=== PATIENT | male | born 1995 | race African-American/Black ===

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

== ENCOUNTER 2019-12-14 11:55 | Inpatient (IN) | payer SELFPAY ==
[~2019-12-14] VITALS: Ht 195.6 cm; Wt 114.4 kg
[~2019-12-14 11:55] MED LIST: INSU100I17 SQ; INSU100V13 SQ
--- NOTE | 2019-12-14 12:31 | PHYS DOC ---
Past Medical History Past Medical History: Diabetes-Type II Additional Past Medical Histor: PRE DM (SKYLAR MAHMOOD APRN) Past Surgical History: No Surgical History (SKYLAR MAHMOOD APRN) Smoking Status: Never Smoker Alcohol Use: None Drug Use: None (SKYLAR MAHMOOD APRN) General Adult EDM: Chief Complaint: BLOOD SUGAR PROBLEM HPI: HPI: Patient is a 24 year old male with hx of DM II, who presents to the ED today concerned he got exposed to COVID19. Patient reports the sister as well as the niece has COVID19. He states his only symptom is body aches. Patient is also concerned about his blood glucose. He states he ran out of his regular insulin a couple weeks ago. He states he does not have a PCP or any where to follow-up. (SKYLAR MAHMOOD APRN) Review of Systems: Review of Systems: Constitutional: Concern for COVID19. Reports body aches. Denies fever or chills. [] Eyes: Denies change in visual acuity. [] HENT: Denies nasal congestion or sore throat. [] Respiratory: Denies cough or shortness of breath. [] Cardiovascular: Denies chest pain or edema. [] GI: Denies abdominal pain, nausea, vomiting, bloody stools or diarrhea. [] : Denies dysuria. [] Musculoskeletal: Denies back pain or joint pain. [] Integument: Denies rash. [] Neurologic: Denies headache, focal weakness or sensory changes. [] Endocrine: Request for insulin refill possible hyperglycemia psychiatric: Denies depression or anxiety. [] (SKYLAR MAHMOOD APRN) Heart Score: Risk Factors: Risk Factors: DM, Current or recent (<one month) smoker, HTN, HLP, family history of CAD, obesity. Risk Scores: Score 0 - 3: 2.5% MACE over next 6 weeks - Discharge Home Score 4 - 6: 20.3% MACE over next 6 weeks - Admit for Clinical Observation Score 7 - 10: 72.7% MACE over next 6 weeks - Early Invasive Strategies (SKYLAR MAHMOOD APRN) Allergies: Allergies: Allergies Coded Allergies Type Severity Reaction Last Updated Verified No Known Drug Allergies 07/30/13 No (SKYLAR MAHMOOD APRN) Physical Exam: PE: Constitutional: Well developed, well nourished, no acute distress, non-toxic appearance. [] HENT: Normocephalic, atraumatic, bilateral external ears normal, oropharynx moist, no oral exudates, nose normal. Dry mucous membranes. Eyes: PERRLA, EOMI, conjunctiva normal, no discharge. [] Neck: Normal range of motion, no tenderness, supple, no stridor. [] Cardiovascular:Heart rate regular rhythm, no murmur [] Lungs & Thorax: Bilateral breath sounds clear to auscultation [] Abdomen: Bowel sounds normal, soft, no tenderness, no masses, no pulsatile masses. [] Skin: Warm, dry, no erythema, no rash. [] Back: No tenderness, no CVA tenderness. [] Extremities: No tenderness, no cyanosis, no clubbing, ROM intact, no edema. [] Neurologic: Alert and oriented X 3, normal motor function, normal sensory function, no focal deficits noted. [] Psychologic: flat affect (SKYLAR MAHMOOD APRN) Current Patient Data: Labs: Laboratory Tests Test 12/14/19 12:03 Glucose (Fingerstick) 489 mg/dL (70-99) H Vital Signs: Vital Signs Date Time Temp Pulse Resp B/P (MAP) Pulse Ox O2 Delivery O2 Flow Rate FiO2 12/14/19 12:19 97.8 99 18 123/69 (87) 100 Room Air 97.8 (SKYLAR MAHMOOD APRN) EKG: EKG: [] (SKYLAR MAHMOOD APRN) Radiology/Procedures: Radiology/Procedures: [] (SKYLAR MAHMOOD APRN) Course & Med Decision Making: Course & Med Decision Making Pertinent Labs and Imaging studies reviewed. (See chart for details) This is a 24-year-old male patient presenting to the ED today concerned he got exposed to COVID19 through the niece and the sister. Patient is also concerned about his blood glucose, he ran out of his insulin weeks ago. Bedside fingerstick 489 CBC no acute findings, CMP with sodium of 129 corrected for glucose 130, blood glucose 477 with an anion gap of 17. Urine analysis noted for 80 ketones. Patient was given 2 L of IV fluids and 10 units of insulin, glucose is down to 403. Spoke with Dr. Basilio who accepted patient for admission. More fluids were ordered as well as 8 units of insulin. (SKYLAR MAHMOOD APRN) Dragon Disclaimer: Dragyaa Disclaimer: This electronic medical record was generated, in whole or in part, using a voice recognition dictation system. (SKYLAR MAHMOOD APRN) Departure Departure Impression: Primary Impression: Person under investigation for COVID-19 Additional Impression: DKA (diabetic ketoacidosis) Qualified Codes: E10.10 - Type 1 diabetes mellitus with ketoacidosis without coma Disposition: ADMITTED INPATIENT Condition: STABLE Referrals: NO PCP (PCP) Justicifation of Admission Dx: Justifications for Admission: Justification of Admission Dx: N/A (SKYLAR MAHMOOD APRN) Attending Signature Attending Signature I have reviewed the PA/SOCIAL SCIENCES PROFESSOR's note and plan of care. I was available for consultation as needed during the patient's visit in the emergency department. I agree with the clinical impression, plan, and disposition. (IFTIKHAR JEFFERSON DO) SKYLAR MAHMOOD APRN Dec 14, 2019 12:31 IFTIKHAR JEFFERSON DO Dec 14, 2019 14:48
[2019-12-14] MEDS ORDERED: INSULIN REGULAR 100 UNIT/ML 3ML VIAL. IV ONE ×3 (13:00→19:15)
[2019-12-14] MEDS ORDERED: IV NORMAL SALINE 1000ML BAG 1,000 ML IV ONE ×5 (13:00→19:15)
[2019-12-14 13:19] LABS: BASO % 0 % (0-3); EOS % 0 % (0-3); HEMOGLOBIN 16.3 g/dL (13.0-17.5); LYMPH # 0.4 x10^3/uL (1.0-4.8); LYMPH % 6 % (24-48); MEAN CORPUSCULAR HEMOGLOBIN 29 pg (25-35); MEAN CORPUSCULAR HGB CONC 33 g/dL (31-37); MEAN CORPUSCULAR VOLUME 88 fL (79-100); MONO % 15 % (0-9); NEUT # 5.7 x10^3/uL (1.8-7.7); NEUT % 79 % (31-73); PLATELET COUNT 156 x10^3/uL (140-400); RED BLOOD COUNT 5.55 x10^6/uL (4.30-5.70); RED CELL DISTRIBUTION WIDTH 12.7 % (11.5-14.5); WHITE BLOOD COUNT 7.2 x10^3/uL (4.0-11.0)
[2019-12-14 13:34] LABS: CALCIUM 9.4 mg/dL (8.5-10.1); CREATININE 1.2 mg/dL (0.7-1.3); GFR 91.6; POTASSIUM 4.3 mmol/L (3.5-5.1)
[2019-12-14 13:40] LABS: ALBUMIN 3.9 g/dL (3.4-5.0); MAGNESIUM 2.2 mg/dL (1.8-2.4); TOTAL BILIRUBIN 0.5 mg/dL (0.2-1.0); TOTAL PROTEIN 7.8 g/dL (6.4-8.2)
[2019-12-14 13:44] LABS: BILIRUBIN,URINE NEGATIVE (NEG); CLARITY,URINE CLEAR; COLOR,URINE YELLOW; NITRITE,URINE NEGATIVE (NEG); PROTEIN,URINE NEGATIVE (NEG-TRACE); UROBILINOGEN,URINE 0.2 mg/dL (0.2 mg/dL)
[2019-12-14 13:52] LABS: BARBITURATES NEG (NEG); BENZODIAZEPINES NEG (NEG); CANNABINOIDS NEG (NEG); COCAINE NEG (NEG); METHADONE NEG (NEG); OPIATES NEG (NEG); PHENCYCLIDINE NEG (NEG)
[2019-12-14 13:53] LABS: AMPHETAMINE/METHAMPHETAMINE NEG (NEG)
[2019-12-14 13:56] LABS: BACTERIA,URINE 0 /HPF (0-FEW); SQUAMOUS EPITHELIAL CELL,UR FEW /LPF
[2019-12-14] MEDS ORDERED: ONDANSETRON PF 4 MG/2 ML VIAL. IV PRN (14:30)
[2019-12-14] MEDS ORDERED: ACETAMINOPHEN 325 MG TABLET. PO PRN (14:30)
[2019-12-14] MEDS ORDERED: DEXTROSE 50% 25 GM / 50ML DISP.SYRIN. IV PRN (15:00)
[2019-12-14] MEDS ORDERED: ONDANSETRON PF 4 MG/2 ML VIAL. IVP PRN (15:00)
--- NOTE | 2019-12-14 15:04 | PDOC1 ---
History and Physical Date of Admission Date of Admission DATE: 12/14/19 TIME: 15:04 Identification/Chief Complaint Chief Complaint Body aches Source Source: Patient History of Present Illness History of Present Illness Patient is a 24-year-old male with past medical history of diabetes, who presents with complaints of body aches. Patient is initial concern was for COVID-19 exposure. He states he is on insulin for his history of diabetes, but has not taken his insulin in 1 week. When asked patient as to why he has not taken his insulin, he is unable to provide adequate reason. He states he has his insulin, but just has not taken it. Patient denies any abdominal pain, nausea, vomiting, diarrhea. Past Medical History Endocrine: Diabetes Past Surgical History Past Surgical History: No pertinent history Family History Family History: Diabetes Social History Smoke: No ALCOHOL: none Drugs: None Current Problem List Problem List Problems Medical Problems: (1) DKA (diabetic ketoacidosis) Status: Acute (2) Person under investigation for COVID-19 Status: Acute Current Medications Current Medications Current Medications Sodium Chloride 1,000 ml @ 1,000 mls/hr 1X ONCE IV Last administered on 12/14/19at 12:46; Start 12/14/19 at 13:00; Stop 12/14/19 at 13:59; Status DC Sodium Chloride 1,000 ml @ 1,000 mls/hr 1X ONCE IV Last administered on 12/14/19at 13:19; Start 12/14/19 at 13:00; Stop 12/14/19 at 13:59; Status DC Insulin Human Regular (HumuLIN R VIAL) 10 unit 1X ONCE IV Last administered on 12/14/19at 12:55; Start 12/14/19 at 13:00; Stop 12/14/19 at 13:01; Status DC Insulin Human Regular (HumuLIN R VIAL) 8 unit 1X ONCE IV Last administered on 12/14/19at 14:42; Start 12/14/19 at 14:30; Stop 12/14/19 at 14:32; Status DC Sodium Chloride 1,000 ml @ 1,000 mls/hr 1X ONCE IV Last administered on 12/14/19at 14:41; Start 12/14/19 at 14:30; Stop 12/14/19 at 15:29 Ondansetron HCl (Zofran) 4 mg PRN Q8HRS PRN IV NAUSEA/VOMITING; Start 12/14/19 at 14:30; Stop 12/15/19 at 14:29 Acetaminophen (Tylenol) 650 mg PRN Q4HRS PRN PO FEVER > 100.3'F; Start 12/14/19 at 14:30; Stop 12/15/19 at 14:29 Sodium Chloride 1,000 ml @ 125 mls/hr 1X ONCE IV Last administered on 12/14/19at 14:30; Start 12/14/19 at 14:30; Stop 12/14/19 at 22:29 Insulin Glargine (Lantus Syringe) 20 unit QHS SQ ; Start 12/14/19 at 21:00; Status UNV Insulin Human Lispro (HumaLOG) 7 units TIDWMEALS SQ ; Start 12/14/19 at 17:00 Dextrose (Dextrose 50%-Water Syringe) 12.5 gm PRN Q15MIN PRN IV SEE COMMENTS; Start 12/14/19 at 15:00 Active Scripts Active Levemir (Insulin Detemir) 100 Unit/1 Ml Vial 330 Unit SQ QHS Novolog Flexpen (Insulin Aspart) 100 Unit/1 Ml Insuln.pen 10 Unit SQ TID Allergies Allergies: Coded Allergies: No Known Drug Allergies (Unverified , 07/30/13) ROS General: No: Chills, Night Sweats, Fatigue PSYCHOLOGICAL ROS: No: Anxiety, Depression Eyes: No Blurry vision, No Double vision HEENT: No: Heacaches, Sore Throat ALLERGY AND IMMUNOLOGY: No: Hives, Nasal Congestion Hematological and Lymphatic: No: Blood Clots, Brusing Respiratory: No: Cough, Shortness of breath Cardiovascular: No Chest Pain, No Palpitations Gastrointestinal: No Nausea, No Vomiting, No Abdominal Pain Genitourinary: No Dysuria, No Frequency Musculoskeletal: Yes Muscle Pain; No Joint Stiffness Neurological: No Dizziness, No Headaches Skin: No Dry Skin, No Rash Physical Exam General: Alert, Oriented X3, Cooperative, No acute distress HEENT: PERRLA Lungs: Clear to auscultation, Normal air movement Heart: RRR, no murmurs Cardiovascular: S1, S2 Abdomen: Normal bowel sounds, Soft, No tenderness, No hepatosplenomegaly, No masses Extremities: No clubbing, No cyanosis, No edema, Normal pulses, No tenderness/swelling Skin: No rashes, No breakdown, No significant lesion Neuro: Normal gait, Normal speech, Strength at 5/5 X4 ext, Normal tone, Sensation intact, Cranial nerves 3-12 NL, Reflexes 2+ Psych/Mental Status: Mental status NL, Mood NL Vitals Vitals Vital Signs Date Time Temp Pulse Resp B/P (MAP) Pulse Ox O2 Delivery O2 Flow Rate FiO2 12/14/19 12:19 97.8 99 18 123/69 (87) 100 Room Air 97.8 Labs Labs Laboratory Tests Test 12/14/19 12:03 12/14/19 12:45 12/14/19 13:15 12/14/19 14:18 Glucose (Fingerstick) 489 mg/dL (70-99) 403 mg/dL (70-99) White Blood Count 7.2 x10^3/uL (4.0-11.0) Red Blood Count 5.55 x10^6/uL (4.30-5.70) Hemoglobin 16.3 g/dL (13.0-17.5) Hematocrit 49.0 % (39.0-53.0) Mean Corpuscular Volume 88 fL (79-100) Mean Corpuscular Hemoglobin 29 pg (25-35) Mean Corpuscular Hemoglobin Concent 33 g/dL (31-37) Red Cell Distribution Width 12.7 % (11.5-14.5) Platelet Count 156 x10^3/uL (140-400) Neutrophils (%) (Auto) 79 % (31-73) Lymphocytes (%) (Auto) 6 % (24-48) Monocytes (%) (Auto) 15 % (0-9) Eosinophils (%) (Auto) 0 % (0-3) Basophils (%) (Auto) 0 % (0-3) Neutrophils # (Auto) 5.7 x10^3/uL (1.8-7.7) Lymphocytes # (Auto) 0.4 x10^3/uL (1.0-4.8) Monocytes # (Auto) 1.0 x10^3/uL (0.0-1.1) Eosinophils # (Auto) 0.0 x10^3/uL (0.0-0.7) Basophils # (Auto) 0.0 x10^3/uL (0.0-0.2) Sodium Level 129 mmol/L (136-145) Potassium Level 4.3 mmol/L (3.5-5.1) Chloride Level 91 mmol/L (98-107) Carbon Dioxide Level 19 mmol/L (21-32) Anion Gap 19 (6-14) Blood Urea Nitrogen 11 mg/dL (8-26) Creatinine 1.2 mg/dL (0.7-1.3) Estimated GFR (Cockcroft-Gault) 91.6 BUN/Creatinine Ratio 9 (6-20) Glucose Level 477 mg/dL (70-99) Calcium Level 9.4 mg/dL (8.5-10.1) Magnesium Level 2.2 mg/dL (1.8-2.4) Total Bilirubin 0.5 mg/dL (0.2-1.0) Aspartate Amino Transf (AST/SGOT) 12 U/L (15-37) Alanine Aminotransferase (ALT/SGPT) 21 U/L (16-63) Alkaline Phosphatase 79 U/L (46-116) Total Protein 7.8 g/dL (6.4-8.2) Albumin 3.9 g/dL (3.4-5.0) Albumin/Globulin Ratio 1.0 (1.0-1.7) Ethyl Alcohol Level < 10 mg/dL (0-10) Urine Collection Type Unknown Urine Color Yellow Urine Clarity Clear Urine pH 5.0 (<5.0-8.0) Urine Specific Edison >=1.030 (1.000-1.030) Urine Protein Negative mg/dL (NEG-TRACE) Urine Glucose (UA) >=1000 mg/dL (NEG) Urine Ketones (Stick) >=80 mg/dL (NEG) Urine Blood Negative (NEG) Urine Nitrite Negative (NEG) Urine Bilirubin Negative (NEG) Urine Urobilinogen Dipstick 0.2 mg/dL (0.2 mg/dL) Urine Leukocyte Esterase Negative (NEG) Urine RBC 6-10 /HPF (0-2) Urine WBC 1-4 /HPF (0-4) Urine Squamous Epithelial Cells Few /LPF Urine Bacteria 0 /HPF (0-FEW) Urine Opiates Screen Neg (NEG) Urine Methadone Screen Neg (NEG) Urine Barbiturates Neg (NEG) Urine Phencyclidine Screen Neg (NEG) Urine Amphetamine/Methamphetamine Neg (NEG) Urine Benzodiazepines Screen Neg (NEG) Urine Cocaine Screen Neg (NEG) Urine Cannabinoids Screen Neg (NEG) Urine Ethyl Alcohol Neg (NEG) Laboratory Tests Test 12/14/19 12:03 12/14/19 12:45 12/14/19 13:15 12/14/19 14:18 Glucose (Fingerstick) 489 mg/dL (70-99) 403 mg/dL (70-99) White Blood Count 7.2 x10^3/uL (4.0-11.0) Red Blood Count 5.55 x10^6/uL (4.30-5.70) Hemoglobin 16.3 g/dL (13.0-17.5) Hematocrit 49.0 % (39.0-53.0) Mean Corpuscular Volume 88 fL (79-100) Mean Corpuscular Hemoglobin 29 pg (25-35) Mean Corpuscular Hemoglobin Concent 33 g/dL (31-37) Red Cell Distribution Width 12.7 % (11.5-14.5) Platelet Count 156 x10^3/uL (140-400) Neutrophils (%) (Auto) 79 % (31-73) Lymphocytes (%) (Auto) 6 % (24-48) Monocytes (%) (Auto) 15 % (0-9) Eosinophils (%) (Auto) 0 % (0-3) Basophils (%) (Auto) 0 % (0-3) Neutrophils # (Auto) 5.7 x10^3/uL (1.8-7.7) Lymphocytes # (Auto) 0.4 x10^3/uL (1.0-4.8) Monocytes # (Auto) 1.0 x10^3/uL (0.0-1.1) Eosinophils # (Auto) 0.0 x10^3/uL (0.0-0.7) Basophils # (Auto) 0.0 x10^3/uL (0.0-0.2) Sodium Level 129 mmol/L (136-145) Potassium Level 4.3 mmol/L (3.5-5.1) Chloride Level 91 mmol/L (98-107) Carbon Dioxide Level 19 mmol/L (21-32) Anion Gap 19 (6-14) Blood Urea Nitrogen 11 mg/dL (8-26) Creatinine 1.2 mg/dL (0.7-1.3) Estimated GFR (Cockcroft-Gault) 91.6 BUN/Creatinine Ratio 9 (6-20) Glucose Level 477 mg/dL (70-99) Calcium Level 9.4 mg/dL (8.5-10.1) Magnesium Level 2.2 mg/dL (1.8-2.4) Total Bilirubin 0.5 mg/dL (0.2-1.0) Aspartate Amino Transf (AST/SGOT) 12 U/L (15-37) Alanine Aminotransferase (ALT/SGPT) 21 U/L (16-63) Alkaline Phosphatase 79 U/L (46-116) Total Protein 7.8 g/dL (6.4-8.2) Albumin 3.9 g/dL (3.4-5.0) Albumin/Globulin Ratio 1.0 (1.0-1.7) Ethyl Alcohol Level < 10 mg/dL (0-10) Urine Collection Type Unknown Urine Color Yellow Urine Clarity Clear Urine pH 5.0 (<5.0-8.0) Urine Specific Edison >=1.030 (1.000-1.030) Urine Protein Negative mg/dL (NEG-TRACE) Urine Glucose (UA) >=1000 mg/dL (NEG) Urine Ketones (Stick) >=80 mg/dL (NEG) Urine Blood Negative (NEG) Urine Nitrite Negative (NEG) Urine Bilirubin Negative (NEG) Urine Urobilinogen Dipstick 0.2 mg/dL (0.2 mg/dL) Urine Leukocyte Esterase Negative (NEG) Urine RBC 6-10 /HPF (0-2) Urine WBC 1-4 /HPF (0-4) Urine Squamous Epithelial Cells Few /LPF Urine Bacteria 0 /HPF (0-FEW) Urine Opiates Screen Neg (NEG) Urine Methadone Screen Neg (NEG) Urine Barbiturates Neg (NEG) Urine Phencyclidine Screen Neg (NEG) Urine Amphetamine/Methamphetamine Neg (NEG) Urine Benzodiazepines Screen Neg (NEG) Urine Cocaine Screen Neg (NEG) Urine Cannabinoids Screen Neg (NEG) Urine Ethyl Alcohol Neg (NEG) VTE Prophylaxis Ordered VTE Prophylaxis Devices: Yes VTE Pharmacological Prophylaxi: No Assessment/Plan Assessment/Plan Hyperglycemia, hyponatremia, ketonuria Plan: Continue with fluid boluses and insulin. Patient anion gap elevated but less than 20. I believe he can be managed with fluid boluses and IV/subQ insulin. Will monitor patient in ICU, but if his gap closes and bicarb normalizes he can be transitioned to the floor. Corrected sodium within normal range. VTE prophylaxis. Patient is on surrogate decision maker. Full code. Justifications for Admission Other Justification MARÍA FARMER MD Dec 14, 2019 15:04
[2019-12-14 17:30] VITALS: BP 126/88
[2019-12-14 18:00] VITALS: BP 119/75
[2019-12-14 19:03] VITALS: BP 136/84
[2019-12-14 19:23] LABS: CREATININE 1.1 mg/dL (0.7-1.3); GFR 101.3; POTASSIUM 4.5 mmol/L (3.5-5.1)
[2019-12-14 19:27] LABS: MAGNESIUM 2.2 mg/dL (1.8-2.4); PHOSPHORUS 3.9 mg/dL (2.6-4.7)
[2019-12-14] MEDS: INSULIN GLARGINE SYRINGE. SQ SCH ×2 (21:03→21:08)
[2019-12-14] MEDS: INSULIN LISPRO 300 UNITS/3 ML VIAL. SQ SCH (21:06)
[2019-12-14 23:56] LABS: CALCIUM 8.3 mg/dL (8.5-10.1); GFR 113.1; MAGNESIUM 2.2 mg/dL (1.8-2.4); PHOSPHORUS 3.6 mg/dL (2.6-4.7); POTASSIUM 4.3 mmol/L (3.5-5.1)
[2019-12-15] VITALS (7 sets, daily range): BP systolic 117–134; BP diastolic 72–86
[2019-12-15 06:35] LABS: BASO % 0 % (0-3); EOS % 0 % (0-3); HEMATOCRIT 43.5 % (39.0-53.0); HEMOGLOBIN 14.5 g/dL (13.0-17.5); LYMPH # 1.2 x10^3/uL (1.0-4.8); LYMPH % 32 % (24-48); MEAN CORPUSCULAR HEMOGLOBIN 29 pg (25-35); MEAN CORPUSCULAR HGB CONC 33 g/dL (31-37); MEAN CORPUSCULAR VOLUME 87 fL (79-100); MONO # 0.5 x10^3/uL (0.0-1.1); MONO % 14 % (0-9); NEUT % 53 % (31-73); PLATELET COUNT 135 x10^3/uL (140-400); RED BLOOD COUNT 4.98 x10^6/uL (4.30-5.70); RED CELL DISTRIBUTION WIDTH 12.6 % (11.5-14.5); WHITE BLOOD COUNT 3.7 x10^3/uL (4.0-11.0)
[2019-12-15 06:55] LABS: CALCIUM 8.3 mg/dL (8.5-10.1); CREATININE 0.8 mg/dL (0.7-1.3); GFR 146.3; POTASSIUM 3.6 mmol/L (3.5-5.1)
[2019-12-15] MEDS: INSULIN LISPRO 300 UNITS/3 ML VIAL. SQ SCH ×4 (08:33→18:18)
--- NOTE | 2019-12-15 09:20 | NUR ---
Patient transferred to room 667 from ICU at 0920. Patient stable, A&O, & no complaints of pain. Will continue to monitor.
--- NOTE | 2019-12-15 11:17 | PDOC ---
[employer] PROGRESS NOTE Date of Service DOS: DATE: 12/15/19 TIME: 11:16 Chief Complaint Chief Complaint DKA History of Present Illness History of Present Illness Patient seen and examined earlier this morning in the ICU he is now being transferred out of the ICU as his COVID testing is negative Discussed with RN Chart reviewed Discussed with case management Vitals/I&O Vitals/I&O: Vital Signs Date Time Temp Pulse Resp B/P (MAP) Pulse Ox O2 Delivery O2 Flow Rate FiO2 12/15/19 08:47 Room Air 12/15/19 08:00 98.7 91 16 130/80 (97) 98 98.7 I & O 12/14/19 12/14/19 12/15/19 15:00 23:00 07:00 Intake Total 240 ml Balance 240 ml Physical Exam General: Alert, Oriented X3, Cooperative, No acute distress Abdomen: Normal bowel sounds, Soft, No tenderness, No hepatosplenomegaly, No masses Extremities: No clubbing, No cyanosis, No edema, Normal pulses, No ten derness/swelling Skin: No rashes, No breakdown, No significant lesion Labs Labs: Laboratory Tests Test 12/14/19 12:03 12/14/19 12:45 12/14/19 13:15 12/14/19 14:18 Glucose (Fingerstick) 489 mg/dL (70-99) 403 mg/dL (70-99) White Blood Count 7.2 x10^3/uL (4.0-11.0) Red Blood Count 5.55 x10^6/uL (4.30-5.70) Hemoglobin 16.3 g/dL (13.0-17.5) Hematocrit 49.0 % (39.0-53.0) Mean Corpuscular Volume 88 fL (79-100) Mean Corpuscular Hemoglobin 29 pg (25-35) Mean Corpuscular Hemoglobin Concent 33 g/dL (31-37) Red Cell Distribution Width 12.7 % (11.5-14.5) Platelet Count 156 x10^3/uL (140-400) Neutrophils (%) (Auto) 79 % (31-73) Lymphocytes (%) (Auto) 6 % (24-48) Monocytes (%) (Auto) 15 % (0-9) Eosinophils (%) (Auto) 0 % (0-3) Basophils (%) (Auto) 0 % (0-3) Neutrophils # (Auto) 5.7 x10^3/uL (1.8-7.7) Lymphocytes # (Auto) 0.4 x10^3/uL (1.0-4.8) Monocytes # (Auto) 1.0 x10^3/uL (0.0-1.1) Eosinophils # (Auto) 0.0 x10^3/uL (0.0-0.7) Basophils # (Auto) 0.0 x10^3/uL (0.0-0.2) Sodium Level 129 mmol/L (136-145) Potassium Level 4.3 mmol/L (3.5-5.1) Chloride Level 91 mmol/L (98-107) Carbon Dioxide Level 19 mmol/L (21-32) Anion Gap 19 (6-14) Blood Urea Nitrogen 11 mg/dL (8-26) Creatinine 1.2 mg/dL (0.7-1.3) Estimated GFR (Cockcroft-Gault) 91.6 BUN/Creatinine Ratio 9 (6-20) Glucose Level 477 mg/dL (70-99) Calcium Level 9.4 mg/dL (8.5-10.1) Magnesium Level 2.2 mg/dL (1.8-2.4) Total Bilirubin 0.5 mg/dL (0.2-1.0) Aspartate Amino Transf (AST/SGOT) 12 U/L (15-37) Alanine Aminotransferase (ALT/SGPT) 21 U/L (16-63) Alkaline Phosphatase 79 U/L (46-116) Total Protein 7.8 g/dL (6.4-8.2) Albumin 3.9 g/dL (3.4-5.0) Albumin/Globulin Ratio 1.0 (1.0-1.7) Ethyl Alcohol Level < 10 mg/dL (0-10) Urine Collection Type Unknown Urine Color Yellow Urine Clarity Clear Urine pH 5.0 (<5.0-8.0) Urine Specific [employer] >=1.030 (1.000-1.030) Urine Protein Negative mg/dL (NEG-TRACE) Urine Glucose (UA) >=1000 mg/dL (NEG) Urine Ketones (Stick) >=80 mg/dL (NEG) Urine Blood Negative (NEG) Urine Nitrite Negative (NEG) Urine Bilirubin Negative (NEG) Urine Urobilinogen Dipstick 0.2 mg/dL (0.2 mg/dL) Urine Leukocyte Esterase Negative (NEG) Urine RBC 6-10 /HPF (0-2) Urine WBC 1-4 /HPF (0-4) Urine Squamous Epithelial Cells Few /LPF Urine Bacteria 0 /HPF (0-FEW) Urine Opiates Screen Neg (NEG) Urine Methadone Screen Neg (NEG) Urine Barbiturates Neg (NEG) Urine Phencyclidine Screen Neg (NEG) Urine Amphetamine/Methamphetamine Neg (NEG) Urine Benzodiazepines Screen Neg (NEG) Urine Cocaine Screen Neg (NEG) Urine Cannabinoids Screen Neg (NEG) Urine Ethyl Alcohol Neg (NEG) Test 12/14/19 15:57 12/14/19 17:55 12/14/19 20:56 12/14/19 22:33 Glucose (Fingerstick) 339 mg/dL (70-99) 294 mg/dL (70-99) 272 mg/dL (70-99) Sodium Level 133 mmol/L (136-145) Potassium Level 4.5 mmol/L (3.5-5.1) Chloride Level 99 mmol/L (98-107) Carbon Dioxide Level 18 mmol/L (21-32) Anion Gap 16 (6-14) Blood Urea Nitrogen 9 mg/dL (8-26) Creatinine 1.1 mg/dL (0.7-1.3) Estimated GFR (Cockcroft-Gault) 101.3 Glucose Level 294 mg/dL (70-99) Calcium Level 8.0 mg/dL (8.5-10.1) Phosphorus Level 3.9 mg/dL (2.6-4.7) Magnesium Level 2.2 mg/dL (1.8-2.4) Test 12/14/19 23:35 12/15/19 06:00 12/15/19 08:31 Sodium Level 136 mmol/L (136-145) 138 mmol/L (136-145) Potassium Level 4.3 mmol/L (3.5-5.1) 3.6 mmol/L (3.5-5.1) Chloride Level 101 mmol/L (98-107) 102 mmol/L (98-107) Carbon Dioxide Level 23 mmol/L (21-32) 21 mmol/L (21-32) Anion Gap 12 (6-14) 15 (6-14) Blood Urea Nitrogen 9 mg/dL (8-26) 8 mg/dL (8-26) Creatinine 1.0 mg/dL (0.7-1.3) 0.8 mg/dL (0.7-1.3) Estimated GFR (Cockcroft-Gault) 113.1 146.3 Glucose Level 277 mg/dL (70-99) 197 mg/dL (70-99) Calcium Level 8.3 mg/dL (8.5-10.1) 8.3 mg/dL (8.5-10.1) Phosphorus Level 3.6 mg/dL (2.6-4.7) Magnesium Level 2.2 mg/dL (1.8-2.4) White Blood Count 3.7 x10^3/uL (4.0-11.0) Red Blood Count 4.98 x10^6/uL (4.30-5.70) Hemoglobin 14.5 g/dL (13.0-17.5) Hematocrit 43.5 % (39.0-53.0) Mean Corpuscular Volume 87 fL (79-100) Mean Corpuscular Hemoglobin 29 pg (25-35) Mean Corpuscular Hemoglobin Concent 33 g/dL (31-37) Red Cell Distribution Width 12.6 % (11.5-14.5) Platelet Count 135 x10^3/uL (140-400) Neutrophils (%) (Auto) 53 % (31-73) Lymphocytes (%) (Auto) 32 % (24-48) Monocytes (%) (Auto) 14 % (0-9) Eosinophils (%) (Auto) 0 % (0-3) Basophils (%) (Auto) 0 % (0-3) Neutrophils # (Auto) 2.0 x10^3/uL (1.8-7.7) Lymphocytes # (Auto) 1.2 x10^3/uL (1.0-4.8) Monocytes # (Auto) 0.5 x10^3/uL (0.0-1.1) Eosinophils # (Auto) 0.0 x10^3/uL (0.0-0.7) Basophils # (Auto) 0.0 x10^3/uL (0.0-0.2) Glucose (Fingerstick) 238 mg/dL (70-99) Assessment and Plan Assessmemt and Plan Problems Medical Problems: (1) DKA (diabetic ketoacidosis) Status: Acute (2) Person under investigation for COVID-19 Status: Resolving DKA Plan Subcu insulin Monitor labs Home meds DVT prophylaxis Full code Hope to discharge in a.m. if he is feeling better Comment Review of Relevant I have reviewed the following items elmira (where applicable) has been applied. Medications: Current Medications Medications (Trade) Dose Ordered Sig/Prince Route PRN Reason Start Time Stop Time Status Last Admin Dose Admin Sodium Chloride 1,000 ml @ 1,000 mls/hr 1X ONCE IV 12/14/19 13:00 12/14/19 13:59 DC 12/14/19 12:46 Sodium Chloride 1,000 ml @ 1,000 mls/hr 1X ONCE IV 12/14/19 13:00 12/14/19 13:59 DC 12/14/19 13:19 Insulin Human Regular (HumuLIN R VIAL) 10 unit 1X ONCE IV 12/14/19 13:00 12/14/19 13:01 DC 12/14/19 12:55 Insulin Human Regular (HumuLIN R VIAL) 8 unit 1X ONCE IV 12/14/19 14:30 12/14/19 14:32 DC 12/14/19 14:42 Sodium Chloride 1,000 ml @ 1,000 mls/hr 1X ONCE IV 12/14/19 14:30 12/14/19 15:29 DC 12/14/19 14:41 Sodium Chloride 1,000 ml @ 125 mls/hr 1X ONCE IV 12/14/19 14:30 12/14/19 22:29 DC 12/14/19 14:30 Insulin Glargine (Lantus Syringe) 20 unit QHS SQ 12/14/19 21:00 12/14/19 21:08 Insulin Human Lispro (HumaLOG) 7 units TIDWMEALS SQ 12/14/19 17:00 12/15/19 08:33 Insulin Human Regular (HumuLIN R VIAL) 10 unit 1X ONCE IV 12/14/19 19:15 12/14/19 19:16 DC 12/14/19 20:44 Sodium Chloride 1,000 ml @ 1,000 mls/hr 1X ONCE IV 8/31/20 19:15 12/14/19 20:14 DC 12/14/19 19:15 Justifications for Admission Other Justification KRISTAL PANG III DO Dec 15, 2019 11:17
--- NOTE | 2019-12-15 11:19 | NUR ---
SS following for discharge planning. SS reviewed pt chart and discussed with pt RN. Pt is from home and is currently on room air. COVID19 test pending. Pt transferred to room 667. Brittney LOPEZ to follow.
[2019-12-15] MEDS: ZINC SULFATE 220 MG CAPSULE. PO SCH (15:57)
[2019-12-15] MEDS: ENOXAPARIN 40 MG/0.4 ML SYRINGE. SQ SCH ×2 (15:58→22:43)
--- NOTE | 2019-12-15 16:55 | NUR ---
SW following. Spoke with RN and reviewed chart. Pt from home with family. Pt on room air and IV Dextrose. Pt COVID positive. SW following as needed.
[2019-12-16 03:44] VITALS: BP 123/74
[2019-12-16 07:00] VITALS: BP 169/94
[2019-12-16] MEDS: ZINC SULFATE 220 MG CAPSULE. PO SCH (08:43)
[2019-12-16] MEDS: INSULIN LISPRO 300 UNITS/3 ML VIAL. SQ SCH ×4 (08:53→12:15)
--- NOTE | 2019-12-16 10:28 | PDOC ---
[employer] PROGRESS NOTE Date of Service DOS: DATE: 12/16/19 TIME: 10:27 Chief Complaint Chief Complaint DKA COVID 19 History of Present Illness History of Present Illness Mr Gilbert is a 24-year-old male with past medical history of diabetes, who presents with complaints of body aches. Patient is initial concern was for COVID-19 exposure. He states he is on insulin for his history of diabetes, but has not taken his insulin in 1 week. When asked patient as to why he has not taken his insulin, he is unable to provide adequate reason. He was found in DKA, gap closed quickly, transitioned to lantus and scheduled lispro. His COVID 19 testing returned negative, however, he does not require O2 He is using Novolin and at night 10 units, I have advised him to increase to 20 units nightly. He also uses Novolin or with meals and I advised him to continue with 10 units with meals and a glucometer. Vitals/I&O Vitals/I&O: Vital Signs Date Time Temp Pulse Resp B/P (MAP) Pulse Ox O2 Delivery O2 Flow Rate FiO2 12/16/19 08:00 Room Air 12/16/19 07:00 98.2 108 18 169/94 (119) 98 98.2 I & O 12/15/19 12/15/19 12/16/19 15:00 23:00 07:00 Intake Total 410 ml Balance 410 ml Physical Exam General: Alert, Oriented X3, Cooperative, No acute distress Abdomen: Normal bowel sounds, Soft, No tenderness, No hepatosplenomegaly, No masses Extremities: No clubbing, No cyanosis, No edema, Normal pulses, No tenderness/swelling Skin: No rashes, No breakdown, No significant lesion Labs Labs: Laboratory Tests Test 12/15/19 11:27 12/15/19 15:00 12/15/19 18:11 12/15/19 20:57 Glucose (Fingerstick) 225 mg/dL (70-99) 299 mg/dL (70-99) 270 mg/dL (70-99) 246 mg/dL (70-99) Test 12/16/19 08:18 Glucose (Fingerstick) 240 mg/dL (70-99) Assessment and Plan Assessmemt and Plan Problems Medical Problems: (1) DKA (diabetic ketoacidosis) Status: Acute (2) Person under investigation for COVID-19 Status: Acute Comment Review of Relevant I have reviewed the following items elmira (where applicable) has been applied. Medications: Current Medications Medications (Trade) Dose Ordered Sig/Prince Route PRN Reason Start Time Stop Time Status Last Admin Dose Admin Insulin Human Lispro (HumaLOG) 0-7 UNITS TIDWMEALS SQ 12/15/19 17:00 12/16/19 08:53 Insulin Human Lispro (HumaLOG) 5 units TIDWMEALS SQ 12/15/19 17:00 12/16/19 09:07 Enoxaparin Sodium (Lovenox 40mg Syringe) 40 mg Q12HR SQ 12/15/19 15:00 12/15/19 22:43 Zinc Sulfate (Orazinc) 220 mg DAILY PO 12/15/19 15:00 12/16/19 08:43 Justifications for Admission Other Justification KATIE TORIBIO MD Dec 16, 2019 10:28
[2019-12-16] MEDS ORDERED: ASPIRIN 325 MG TABLET PO SCH (10:30)
[2019-12-16 11:00] VITALS: BP 133/67
[2019-12-16] MEDS ORDERED: INSU100V11 IJ (13:42)
[2019-12-16] MEDS ORDERED: NPH,100V5 SQ (13:42)
[2019-12-16] MEDS ORDERED: ASPI325T8 PO (13:42)
[2019-12-16] MEDS ORDERED: ZINC220C2 PO (13:42)
--- NOTE | 2019-12-16 13:44 | NUR ---
SW following. Spoke with RN and reviewed chart. Pt to discharge home today self-care. Pt is self-pay and [facility] is following. SW provided resources for self-pay patients r/t out-patient follow up per dx of diabetes. Pt on room air and oral medications. Pt to quarantine per COVID positive status. No further SW needs at this time.
--- NOTE | 2019-12-16 13:51 | PDOC3 ---
Discharge Summary Visit Information Date of Admission: Dec 14, 2019 Date of Discharge: Dec 16, 2019 Admitting Diagnosis: DKA Final Diagnosis Problems Medical Problems: (1) DKA (diabetic ketoacidosis) Status: Acute (2) Person under investigation for COVID-19 Status: Acute Brief Hospital Course Allergies Allergies Coded Allergies Type Severity Reaction Last Updated Verified No Known Drug Allergies 07/30/13 No Vital Signs Vital Signs Date Time Temp Pulse Resp B/P (MAP) Pulse Ox O2 Delivery O2 Flow Rate FiO2 12/16/19 11:00 98.6 133/67 (89) 99 Room Air 98.6 12/16/19 07:00 108 18 Lab Results Laboratory Tests Test 12/14/19 14:18 12/14/19 15:57 12/14/19 17:55 12/14/19 20:56 Glucose (Fingerstick) 403 mg/dL (70-99) 339 mg/dL (70-99) 294 mg/dL (70-99) Sodium Level 133 mmol/L (136-145) Potassium Level 4.5 mmol/L (3.5-5.1) Chloride Level 99 mmol/L (98-107) Carbon Dioxide Level 18 mmol/L (21-32) Anion Gap 16 (6-14) Blood Urea Nitrogen 9 mg/dL (8-26) Creatinine 1.1 mg/dL (0.7-1.3) Estimated GFR (Cockcroft-Gault) 101.3 Glucose Level 294 mg/dL (70-99) Calcium Level 8.0 mg/dL (8.5-10.1) Phosphorus Level 3.9 mg/dL (2.6-4.7) Magnesium Level 2.2 mg/dL (1.8-2.4) Test 12/14/19 22:33 12/14/19 23:35 12/15/19 06:00 12/15/19 08:31 Glucose (Fingerstick) 272 mg/dL (70-99) 238 mg/dL (70-99) Sodium Level 136 mmol/L (136-145) 138 mmol/L (136-145) Potassium Level 4.3 mmol/L (3.5-5.1) 3.6 mmol/L (3.5-5.1) Chloride Level 101 mmol/L (98-107) 102 mmol/L (98-107) Carbon Dioxide Level 23 mmol/L (21-32) 21 mmol/L (21-32) Anion Gap 12 (6-14) 15 (6-14) Blood Urea Nitrogen 9 mg/dL (8-26) 8 mg/dL (8-26) Creatinine 1.0 mg/dL (0.7-1.3) 0.8 mg/dL (0.7-1.3) Estimated GFR (Cockcroft-Gault) 113.1 146.3 Glucose Level 277 mg/dL (70-99) 197 mg/dL (70-99) Calcium Level 8.3 mg/dL (8.5-10.1) 8.3 mg/dL (8.5-10.1) Phosphorus Level 3.6 mg/dL (2.6-4.7) Magnesium Level 2.2 mg/dL (1.8-2.4) White Blood Count 3.7 x10^3/uL (4.0-11.0) Red Blood Count 4.98 x10^6/uL (4.30-5.70) Hemoglobin 14.5 g/dL (13.0-17.5) Hematocrit 43.5 % (39.0-53.0) Mean Corpuscular Volume 87 fL (79-100) Mean Corpuscular Hemoglobin 29 pg (25-35) Mean Corpuscular Hemoglobin Concent 33 g/dL (31-37) Red Cell Distribution Width 12.6 % (11.5-14.5) Platelet Count 135 x10^3/uL (140-400) Neutrophils (%) (Auto) 53 % (31-73) Lymphocytes (%) (Auto) 32 % (24-48) Monocytes (%) (Auto) 14 % (0-9) Eosinophils (%) (Auto) 0 % (0-3) Basophils (%) (Auto) 0 % (0-3) Neutrophils # (Auto) 2.0 x10^3/uL (1.8-7.7) Lymphocytes # (Auto) 1.2 x10^3/uL (1.0-4.8) Monocytes # (Auto) 0.5 x10^3/uL (0.0-1.1) Eosinophils # (Auto) 0.0 x10^3/uL (0.0-0.7) Basophils # (Auto) 0.0 x10^3/uL (0.0-0.2) C-Reactive Protein, Quantitative 20.0 mg/L (0-3.3) Test 12/15/19 11:27 12/15/19 15:00 12/15/19 18:11 12/15/19 20:57 Glucose (Fingerstick) 225 mg/dL (70-99) 299 mg/dL (70-99) 270 mg/dL (70-99) 246 mg/dL (70-99) Test 12/16/19 08:18 12/16/19 12:09 Glucose (Fingerstick) 240 mg/dL (70-99) 266 mg/dL (70-99) Laboratory Tests Test 12/15/19 15:00 12/15/19 18:11 12/15/19 20:57 12/16/19 08:18 Glucose (Fingerstick) 299 mg/dL (70-99) 270 mg/dL (70-99) 246 mg/dL (70-99) 240 mg/dL (70-99) Test 12/16/19 12:09 Glucose (Fingerstick) 266 mg/dL (70-99) Brief Hospital Course Mr Gilbert is a 24-year-old male with past medical history of diabetes, who presents with complaints of body aches. Patient is initial concern was for COVID-19 exposure. He states he is on insulin for his history of diabetes, but has not taken his insulin in 1 week. When asked patient as to why he has not taken his insulin, he is unable to provide adequate reason. He was found in DKA, gap closed quickly, transitioned to lantus and scheduled lispro. His COVID 19 testing returned negative, however, he does not require O2 He is using Novolin and at night 10 units, I have advised him to increase to 20 units nightly. He also uses Novolin or with meals and I advised him to continue with 10 units with meals and a glucometer. Problem list: DKA COVID 19 Greater than 30 minutes spent on d/c Discharge Information Condition at Discharge: Improved Follow Up: Weeks Disposition/Orders: D/C to Home Scheduled Aspirin (Aspirin) 325 Mg Tablet, 325 MG PO [id number] for COVID 19 for 30 Days, #30 Prescribed by: KATIE TORIBIO MD on 12/16/19 1342 Insulin Regular, Human (Novolin R) 100 Unit/1 Ml Vial, 10 UNIT IJ TIDWMEALS for DM1 for 30 Days, #7 Ref 11 Prescribed by: KATIE TORIBIO MD on 12/16/19 1342 Nph, Human Insulin Isophane (Novolin N) 100 Unit/1 Ml Vial, 22 UNIT SQ QHS for DM1 for 30 Days, #6 Ref 11 Prescribed by: KATIE TORIBIO MD on 12/16/19 1342 Zinc Sulfate (Orazinc) 220 Mg Capsule, 220 MG PO DAILY for COVID 19 for 30 Days, #30 Prescribed by: KATIE TORIBIO MD on 12/16/19 1342 Discontinued Medications Insulin Aspart (Novolog Flexpen) 100 Unit/1 Ml Insuln.pen, 10 UNIT SQ TID, #1 Prescribed by: CARTER CERVANTES on 06/16/16 1223 Insulin Detemir (Levemir) 100 Unit/1 Ml Vial, 330 UNIT SQ QHS, #1 Prescribed by: CARTER CERVANTES on 06/16/16 1223 Justicifation of Admission Dx: Justifications for Admission: Justification of Admission Dx: N/A KATIE TORIBIO MD Dec 16, 2019 13:51
[2019-12-16 15:00] VITALS: BP 132/74
--- NOTE | 2019-12-16 16:20 | NUR ---
Discharge Note: MAURICE CRISTINA Discharge instructions and discharge home medications reviewed with Patient and a copy given. All questions have been answered and understanding verbalized. The following instructions and handouts were given: pneumonia, diabetes sick days home care, and dm ketoacidosis. Discontinued iv line and catheter intact. Patient discharged to home with self-care via private vehicle.
== END 2019-12-16 16:29 | disposition home or self-care (01) | DRG 177 ==
LOC: ER 11:55 → ED HOLD 16:25 → 1 WEST ICU 17:11 → 6 SOUTH 12-15 09:48
PROVIDERS: ADMIT Family Medicine; ATTEND Family Medicine
DX: U07.1 COVID-19 (principal); E10.10 Type 1 diabetes mellitus with ketoacidosis without coma; E87.1 Hypo-osmolality and hyponatremia; Z20.828 Contact with and (suspected) exposure to other viral communicable diseases; Z79.4 Long term (current) use of insulin; Z83.3 Family history of diabetes mellitus
CPT/HCPCS: 36415; 80048; 80053; 80307; 81001; 82962; 83735; 83930; 84100; 85025; 86140; 96361; 96374; 96375; 99285; G0480; J1650; J1815; J7030; G0378; U0003-CS

== ENCOUNTER 2021-05-01 12:08 | Emergency (ER) | payer SELFPAY ==
[~2021-05-01] VITALS: Ht 195.6 cm; Wt 100.6 kg
[~2021-05-01 12:08] MED LIST changes: +ASPI325T8 PO; +INSU100V11 IJ; +NPH,100V5 SQ; +ZINC220C2 PO
[2021-05-01] MEDS ORDERED: IV NORMAL SALINE 1000ML BAG 1,000 ML IV ONE ×2 (15:45→19:00)
[2021-05-01 16:29] LABS: BASO % 0 % (0-3); EOS % 0 % (0-3); HEMATOCRIT 49.2 % (39.0-53.0); HEMOGLOBIN 16.7 g/dL (13.0-17.5); LYMPH # 1.4 x10^3/uL (1.0-4.8); LYMPH % 20 % (24-48); MEAN CORPUSCULAR HEMOGLOBIN 29 pg (25-35); MEAN CORPUSCULAR HGB CONC 34 g/dL (31-37); MEAN CORPUSCULAR VOLUME 86 fL (79-100); MONO # 0.3 x10^3/uL (0.0-1.1); MONO % 5 % (0-9); NEUT # 5.1 x10^3/uL (1.8-7.7); NEUT % 74 % (31-73); PLATELET COUNT 206 x10^3/uL (140-400); RED BLOOD COUNT 5.75 x10^6/uL (4.30-5.70); RED CELL DISTRIBUTION WIDTH 12.2 % (11.5-14.5); WHITE BLOOD COUNT 6.9 x10^3/uL (4.0-11.0)
[2021-05-01 16:38] LABS: CREATININE 0.8 mg/dL (0.7-1.3); POTASSIUM 4.2 mmol/L (3.5-5.1)
[2021-05-01 16:44] LABS: TOTAL BILIRUBIN 0.6 mg/dL (0.2-1.0); TOTAL PROTEIN 7.9 g/dL (6.4-8.2)
[2021-05-01 17:30] LABS: BILIRUBIN,URINE NEGATIVE (NEG); CLARITY,URINE CLEAR; COLOR,URINE YELLOW; NITRITE,URINE NEGATIVE (NEG); PH,URINE 5.5 (<5.0-8.0); PROTEIN,URINE NEGATIVE (NEG-TRACE); UROBILINOGEN,URINE 0.2 mg/dL (0.2 mg/dL)
[2021-05-01 18:02] LABS: BACTERIA,URINE 0 /HPF (0-FEW); RBC,URINE RARE /HPF (0-2); WBC,URINE 0 /HPF (0-4)
[2021-05-01 19:17] LABS: BARBITURATES NEG (NEG); BENZODIAZEPINES NEG (NEG); CANNABINOIDS NEG (NEG); COCAINE NEG (NEG); METHADONE NEG (NEG); OPIATES NEG (NEG); PHENCYCLIDINE NEG (NEG)
[2021-05-01 19:18] LABS: AMPHETAMINE/METHAMPHETAMINE NEG (NEG)
--- NOTE | 2021-05-01 20:20 | PHYS DOC ---
Past Medical History Past Medical History: Diabetes-Type II Additional Past Medical Histor: PRE DM Past Surgical History: No Surgical History Smoking Status: Never Smoker Alcohol Use: None Drug Use: None General Adult EDM: Chief Complaint: HYPERGLYCEMIA HPI: HPI: Patient is a 25 year old male with history of diabetes type 1 noncompliant presenting today complaining of hyperglycemia and dizziness. Patient states his blood sugar at home was high though he did not measure it. He states he is on insulin and does not remember the last time he used his insulin neither does he know the name of the insulin. He states he has no PCP Review of Systems: Review of Systems: Constitutional: Denies fever or chills. [] Eyes: Denies change in visual acuity. [] HENT: Denies nasal congestion or sore throat. [] Respiratory: Denies cough or shortness of breath. [] Cardiovascular: Denies chest pain or edema. [] GI: Denies abdominal pain, nausea, vomiting, bloody stools or diarrhea. [] : Denies dysuria. [] Musculoskeletal: Denies back pain or joint pain. [] Integument: Denies rash. [] Neurologic: Reports dizziness. Denies headache, focal weakness or sensory changes. [] Psychiatric: Denies depression or anxiety. [] Heart Score: C/O Chest Pain: N/A Risk Factors: Risk Factors: DM, Current or recent (<one month) smoker, HTN, HLP, family history of CAD, obesity. Risk Scores: Score 0 - 3: 2.5% MACE over next 6 weeks - Discharge Home Score 4 - 6: 20.3% MACE over next 6 weeks - Admit for Clinical Observation Score 7 - 10: 72.7% MACE over next 6 weeks - Early Invasive Strategies Current Medications: Current Medications Medications (Trade) Dose Ordered Sig/Prince Start Time Stop Time Status Last Admin Dose Admin Sodium Chloride 1,000 ml @ 1,000 mls/hr 1X ONCE 05/01/21 19:00 05/01/21 19:59 DC Allergies: Allergies: Allergies Coded Allergies Type Severity Reaction Last Updated Verified No Known Drug Allergies 07/30/13 No Physical Exam: PE: Constitutional: Well developed, well nourished, no acute distress, non-toxic appearance. [] HENT: Normocephalic, atraumatic, bilateral external ears normal, oropharynx moist, no oral exudates, nose normal. [] Eyes: PERRLA, EOMI, conjunctiva normal, no discharge. [] Neck: Normal range of motion, no tenderness, supple, no stridor. [] Cardiovascular:Heart rate regular rhythm, no murmur [] Lungs & Thorax: Bilateral breath sounds clear to auscultation [] Abdomen: Bowel sounds normal, soft, no tenderness, no masses, no pulsatile masses. [] Skin: Warm, dry, no erythema, no rash. [] Back: No tenderness, no CVA tenderness. [] Extremities: No tenderness, no cyanosis, no clubbing, ROM intact, no edema. [] Neurologic: Alert and oriented X 3, normal motor function, normal sensory function, no focal deficits noted. Cranial nerves II through XII intact Psychologic: Affect normal, judgement normal, mood normal. [] Current Patient Data: Labs: Laboratory Tests Test 05/01/21 12:43 05/01/21 15:58 05/01/21 16:10 05/01/21 17:20 Glucose (Fingerstick) 457 mg/dL (70-99) H 364 mg/dL (70-99) H White Blood Count 6.9 x10^3/uL (4.0-11.0) Red Blood Count 5.75 x10^6/uL (4.30-5.70) H Hemoglobin 16.7 g/dL (13.0-17.5) Hematocrit 49.2 % (39.0-53.0) Mean Corpuscular Volume 86 fL (79-100) Mean Corpuscular Hemoglobin 29 pg (25-35) Mean Corpuscular Hemoglobin Concent 34 g/dL (31-37) Red Cell Distribution Width 12.2 % (11.5-14.5) Platelet Count 206 x10^3/uL (140-400) Neutrophils (%) (Auto) 74 % (31-73) H Lymphocytes (%) (Auto) 20 % (24-48) L Monocytes (%) (Auto) 5 % (0-9) Eosinophils (%) (Auto) 0 % (0-3) Basophils (%) (Auto) 0 % (0-3) Neutrophils # (Auto) 5.1 x10^3/uL (1.8-7.7) Lymphocytes # (Auto) 1.4 x10^3/uL (1.0-4.8) Monocytes # (Auto) 0.3 x10^3/uL (0.0-1.1) Eosinophils # (Auto) 0.0 x10^3/uL (0.0-0.7) Basophils # (Auto) 0.0 x10^3/uL (0.0-0.2) Sodium Level 134 mmol/L (136-145) L Potassium Level 4.2 mmol/L (3.5-5.1) Chloride Level 96 mmol/L (98-107) L Carbon Dioxide Level 24 mmol/L (21-32) Anion Gap 14 (6-14) Blood Urea Nitrogen 13 mg/dL (8-26) Creatinine 0.8 mg/dL (0.7-1.3) Estimated GFR (Cockcroft-Gault) 145.0 BUN/Creatinine Ratio 16 (6-20) Glucose Level 367 mg/dL (70-99) H Calcium Level 9.0 mg/dL (8.5-10.1) Total Bilirubin 0.6 mg/dL (0.2-1.0) Aspartate Amino Transferase (AST) 7 U/L (15-37) L Alanine Aminotransferase (ALT) 17 U/L (16-63) Alkaline Phosphatase 95 U/L (46-116) Total Protein 7.9 g/dL (6.4-8.2) Albumin 4.0 g/dL (3.4-5.0) Albumin/Globulin Ratio 1.0 (1.0-1.7) Urine Color Yellow Urine Clarity Clear Urine pH 5.5 (<5.0-8.0) Urine Specific [place] >=1.030 (1.000-1.030) Urine Protein Negative mg/dL (NEG-TRACE) Urine Glucose (UA) >=1000 mg/dL (NEG) Urine Ketones (Stick) 40 mg/dL (NEG) Urine Blood Negative (NEG) Urine Nitrite Negative (NEG) Urine Bilirubin Negative (NEG) Urine Urobilinogen Dipstick 0.2 mg/dL (0.2 mg/dL) Urine Leukocyte Esterase Negative (NEG) Urine RBC Rare /HPF (0-2) Urine WBC 0 /HPF (0-4) Urine Bacteria 0 /HPF (0-FEW) Urine Opiates Screen Neg (NEG) Urine Methadone Screen Neg (NEG) Urine Barbiturates Neg (NEG) Urine Phencyclidine Screen Neg (NEG) Urine Amphetamine/Methamphetamine Neg (NEG) Urine Benzodiazepines Screen Neg (NEG) Urine Cocaine Screen Neg (NEG) Urine Cannabinoids Screen Neg (NEG) Urine Ethyl Alcohol Neg (NEG) Test 05/01/21 17:45 05/01/21 20:05 Glucose (Fingerstick) 266 mg/dL (70-99) H 264 mg/dL (70-99) H Laboratory Tests 05/01/21 16:10 Laboratory Tests 05/01/21 16:10 Vital Signs: Vital Signs Date Time Temp Pulse Resp B/P (MAP) Pulse Ox O2 Delivery O2 Flow Rate FiO2 05/01/21 12:52 98.0 109 10 133/99 (110) 98 Room Air 98.0 EKG: EKG: [] Radiology/Procedures: Radiology/Procedures: [] Course & Med Decision Making: Course & Med Decision Making Pertinent Labs and Imaging studies reviewed. (See chart for details) This is a 25-year-old male patient history of diabetes type 1 noncompliant presenting today for hyperglycemia. Glucose on arrival was 457. BMP with glucose of 367, anion gap is normal, CO2 is normal. Creatinine and BUN are normal. Urine with 40 ketones. Patient was given 2 L of fluid, glucose has come down to 264. Consulted with Dr. Lama. Spoke with Dr. Perez he recommended. Regular insulin 10 units 3 times daily, NovoLog sliding scale, Lantus 10 units nightly. Patient follow-up with PCP as soon as possible Jasiel Disclaimer: Jasiel Disclaimer: This electronic medical record was generated, in whole or in part, using a voice recognition dictation system. Departure Departure Impression: Primary Impression: Hyperglycemia Disposition: HOME / SELF CARE / HOMELESS Condition: STABLE Referrals: NO PCP (PCP) Follow-up with a primary care doctor from the list provided as soon as possible Patient Instructions: Hyperglycemia Additional Instructions: You were evaluated for hypoglycemia. We put you on insulin. Use it as prescribed. Please follow-up with your primary care doctor or one of the doctors from the list provided as soon as possible Scripts Insulin Aspart (NOVOLOG FLEXPEN) 100 Unit/1 Ml Insuln.pen 1 UNIT SQ TIDWMEALS, #1 SYR 6 Refills slidding scale 151-200 2 units 201-250 3 units 251-300-4 units 301-350 5 units >351 call your doctor Prov: SKYLAR MAHMOOD APRN 05/01/21 Nph, Human Insulin Isophane (HUMULIN N KWIKPEN) 100 Unit/1 Ml Insuln.pen 10 UNIT SQ QHS, #1 EACH 6 Refills Prov: SKYLAR MAHMOOD APRN 05/01/21 Insulin Regular, Human (HUMULIN R) 100 Unit/1 Ml Vial 10 UNIT IJ TIDWMEALS, #1 EACH 6 Refills Prov: SKYLAR MAHMOOD APRN 05/01/21 SKYLAR MAHMOOD APRN May 01, 2021 20:20
[2021-05-01 20:30] VITALS: BP 142/64
[2021-05-01] MEDS ORDERED: NPH,100I3 SQ (20:39)
[2021-05-01] MEDS ORDERED: INSU100V5 IJ (20:39)
[2021-05-01] MEDS ORDERED: INSU100I17 SQ (20:43)
== END 2021-05-01 20:59 | disposition home or self-care (01) ==
LOC: ER 12:08
DX: E11.65 Type 2 diabetes mellitus with hyperglycemia (principal)
CPT/HCPCS: 36415; 80053; 80307; 81001; 82962; 85025; 96360; 96361; 99283; J7030